=== PATIENT | female | born 1965 | race Caucasian/White ===

== ENCOUNTER 2019-04-09 08:09 | Day surgery (SDC) | payer OTHER ==
[~2019-04-09] VITALS: Ht 162.6 cm; Wt 82.3 kg
[~2019-04-09 08:09] MED LIST: DIPH25CA61 PO; FLUT9.9S NS; LIDOCAINE 1%-EPI 1:100K, 20ML ONE; ROPIvacaine/PF 0.5%, 30 ML ONE
[2019-04-09 08:40] VITALS: BP 120/84
[2019-04-09] MEDS ORDERED: GABAPENTIN 300 MG CAPSULE PO ONE (08:43)
[2019-04-09] MEDS ORDERED: ACETAMINOPHEN 500 MG TABLET PO ONE (08:43)
[2019-04-09] MEDS ORDERED: LACTATED RINGERS 1,000 ML IV SCH (08:44)
[2019-04-09] MEDS ORDERED: FENTANYL PF 100 MCG/2ML ONE ×3 (08:47→10:27)
[2019-04-09] MEDS ORDERED: MIDAZOLAM 1 MG/ML, 2ML ONE (08:47)
[2019-04-09] MEDS ORDERED: ONDANSETRON 2MG/ML, 2ML ONE (08:57)
[2019-04-09] MEDS ORDERED: KETOROLAC 30 MG/1 ML ONE (08:57)
[2019-04-09] MEDS ORDERED: CEFAZOLIN 1,000 MG ONE (08:57)
[2019-04-09] MEDS ORDERED: LIDOCAINE-MPF 2% ,5ML ONE (08:57)
[2019-04-09] MEDS ORDERED: DEXAMETHASONE 4 MG/ML, 1ML ONE (08:57)
[2019-04-09] MEDS ORDERED: PROPOFOL 10 MG/ML, 20ML ONE (08:57)
[2019-04-09] MEDS: FENTANYL PF 100 MCG/2ML IV PRN ×3 (10:12→10:26)
[2019-04-09] MEDS ORDERED: ALBUTEROL/IPRATROPIUM 2.5MG/0.5MG, 3 ML NPPB PRN (10:30)
[2019-04-09] MEDS ORDERED: hydrALAzine 20 MG/ML, 1ML IV PRN (10:30)
[2019-04-09] MEDS ORDERED: METOPROLOL 1 MG/ML, 5ML IV PRN (10:30)
[2019-04-09] MEDS ORDERED: MEPERIDINE/PF 25MG/ML,1ML IVPush PRN (10:30)
[2019-04-09] MEDS ORDERED: MIDAZOLAM 1 MG/ML, 2ML IV PRN (10:30)
[2019-04-09] MEDS ORDERED: OXYcodone 5 MG/5 ML ORAL.SOL UDC PO PRN (10:30)
[2019-04-09] MEDS ORDERED: MORPHINE SULFATE 4 MG/ML, 1ML IVPush PRN (10:30)
[2019-04-09] MEDS ORDERED: PROMETHAZINE 25 MG/ML, 1ML IV PRN (10:30)
[2019-04-09] MEDS ORDERED: MEPERIDINE/PF 25MG/ML,1ML ONE (10:31)
[2019-04-09] MEDS ORDERED: OXYcodone 5 MG/5 ML ORAL.SOL UDC ONE (10:46)
== END 2019-04-09 12:35 | disposition home or self-care (01) ==
LOC: OUT 08:09
PROVIDERS: ATTEND Orthopaedic Surgery
DX: S83.232A Complex tear of medial meniscus, current injury, left knee, initial encounter (principal); S83.282A Other tear of lateral meniscus, current injury, left knee, initial encounter; Z88.5 Allergy status to narcotic agent; X58.XXXA Exposure to other specified factors, initial encounter; Y93.89 Activity, other specified; Y92.89 Other specified places as the place of occurrence of the external cause; Y99.8 Other external cause status; M22.42 Chondromalacia patellae, left knee
CPT/HCPCS: 29880; J0690; J1100; J1885; J2175; J2250; J2405; J2704; J2795; J3010; J3490; J7120